=== PATIENT | female | born 1980 | race Caucasian/White ===

== ENCOUNTER → 2018-03-01 08:57 | Outpatient (CLI) | payer BC, SELFPAY ==
--- NOTE | 2018-03-01 | FL_ITS ---
FL upper GI w air HISTORY: ITS.REASON: UPPER ABD PAIN, fullness SENSATION ORDERING PHYSICIAN: Danielle Vazquez PATIENT AGE: 37 years Comparison: None FINDINGS: The esophagus, stomach, and duodenum have an unremarkable appearance. There is no evidence of hiatal hernia. No ulcer or mass evident. No mucosal abnormalities apparent. There is normal peristalsis. The duodenal C-loop is nondisplaced. FLUOROSCOPY TIME : 1 minute 36 seconds. IMPRESSION: Negative upper GI
== END ==
PROVIDERS: Family Provider Nurse Practitioner Family; PCP Nurse Practitioner Family; Visit Provider Nurse Practitioner Family
DX: R10.10 Upper abdominal pain, unspecified (principal); F45.8 Other somatoform disorders
CPT/HCPCS: 74247

== ENCOUNTER → 2019-08-06 17:15 | Outpatient (CLI) | payer BC, SELFPAY ==
[2019-08-07 16:35] LABS: Microscopic, Urine URINE MICROSCOPIC (MICROSCOPIC)
[2019-08-07 17:13] LABS: Appearance,Urine CLEAR (Clear); Bilirubin,Urine Negative (Negative); Blood, Urine Negative (Negative); Color,Urine YELLOW (Yellow); Glucose,Urine (UA) Negative (Negative); Ketones,Urine Negative (Negative); Leukocyte Esterase,Urine 1+ (Negative); Nitrate,Urine Negative (Negative); Protein,Urine Negative (Negative); Urobilinogen,Urine 0.2 EU/dl (0.2)
[2019-08-07 18:04] LABS: Bacteria,Urine Trace /lpf; Squamous Epithelial Cell,Urine Occasional #/hpf (0-5)
== END ==
PROVIDERS: Visit Provider Nurse Practitioner Family
DX: R30.0 Dysuria (principal)
CPT/HCPCS: 81001; 87086

== ENCOUNTER → 2020-03-11 15:16 | Outpatient (CLI) | payer BC, SELFPAY ==
[2020-03-11 16:00] LABS: Basophils % 0.5 % (0.1-2.0); Eosinophils # 0.1 K/mm3 (0.0-0.4); Eosinophils % 1.4 % (0.1-12.0); Hematocrit 43.1 % (37.0-47.0); Lymphocytes % 30.4 % (10-50); Mean Corpuscular HGB Conc 34.7 g/dL (31.8-35.4); Mean Corpuscular Hemoglobin 29.8 pg (27.0-31.2); Mean Platelet Volume 7.9 fl (7.4-10.4); Monocytes # 0.3 K/mm3 (0.1-1.0); Monocytes % 4.9 % (1.7-9.3); Neutrophils # 4.2 K/mm3 (1.8-7.8); Neutrophils % 62.7 % (37.0-80.0); Platelet Count 317 K/mm3 (142-424); Red Blood Count 5.02 M/mm3 (4.20-5.40); Red Cell Distribution Width 14.1 % (11.5-17.5); White Blood Count 6.6 K/mm3 (4.8-10.8)
[2020-03-11 17:11] LABS: Chloride 102 mmol/L (98-107); Potassium 4.5 mmoL/L (3.5-5.1); Sodium 139 mmol/L (136-145)
[2020-03-11 17:14] LABS: Alanine Aminotransferase 23 U/L (12-78); Albumin Level 4.9 g/dl (3.5-5.0); Albumin/Globulin Ratio 1.9 (1.1-1.8); Alkaline Phosphatase 95 U/L (38-126); Anion Gap 12.5 mEq/L (5-15); Aspartate Amino Transferase 27 U/L (14-36); Bilirubin,Total 0.6 mg/dl (0.2-1.3); Blood Urea Nitrogen 19 mg/dl (7-17); Carbon Dioxide 29 mmol/L (22.0-30.0); Estimated Glomerular Filt Rate 70 ml/min (>60); GFR (African American) 85 ML/MIN (>60); Globulin 2.6 g/dL (1.3-3.2); Total Protein,Serum 7.5 g/dl (6.3-8.2)
[2020-03-11 17:15] LABS: Calcium 9.9 mg/dl (8.4-10.2); Glucose 90 mg/dl (74-100)
[2020-03-11 17:44] LABS: Thyroid Stimulating Hormone 1.15 uIU/mL (0.465-4.68)
== END ==
PROVIDERS: PCP Nurse Practitioner Family; Visit Provider Nurse Practitioner Family
DX: Z00.00 Encounter for general adult medical examination without abnormal findings (principal)
CPT/HCPCS: 36415; 80053; 84443; 85025

== ENCOUNTER → 2020-11-27 13:38 | Outpatient (CLI) | payer BC, SELFPAY ==
[2020-11-27 14:40] LABS: Basophils % 0.2 % (0.1-2.0); Eosinophils % 0.2 % (0.1-12.0); Hematocrit 38.2 % (37.0-47.0); Hemoglobin 12.4 g/dL (12.2-16.2); Lymphocytes # 1.5 K/mm3 (0.7-4.5); Lymphocytes % 7.3 % (10-50); Mean Corpuscular HGB Conc 32.4 g/dL (31.8-35.4); Mean Corpuscular Hemoglobin 28.8 pg (27.0-31.2); Mean Corpuscular Volume 88.8 fl (81-99); Mean Platelet Volume 7.6 fl (7.4-10.4); Monocytes # 0.4 K/mm3 (0.1-1.0); Monocytes % 1.9 % (1.7-9.3); Neutrophils % 90.4 % (37.0-80.0); Platelet Count 280 K/mm3 (142-424); Red Blood Count 4.31 M/mm3 (4.20-5.40); Red Cell Distribution Width 13.8 % (11.5-17.5)
[2020-11-27 14:44] LABS: MANUAL DIFFERENTIAL MANUAL DIFFERENTIAL (MANUAL DIFF)
[2020-11-27 16:07] LABS: Alanine Aminotransferase 156 U/L (12-78); Albumin Level 3.9 g/dl (3.5-5.0); Albumin/Globulin Ratio 1.6 (1.1-1.8); Alkaline Phosphatase 185 U/L (38-126); Amylase 53 U/L (30-110); Aspartate Amino Transferase 65 U/L (14-36); Bilirubin,Total 0.6 mg/dl (0.2-1.3); Blood Urea Nitrogen 13 mg/dl (7-17); Calcium 9.2 mg/dl (8.4-10.2); Carbon Dioxide 29 mmol/L (22.0-30.0); Chloride 103 mmol/L (98-107); Estimated Glomerular Filt Rate 70 ml/min (>60); GFR (African American) 85 ML/MIN (>60); Globulin 2.5 g/dL (1.3-3.2); Glucose 82 mg/dl (74-100); Lipase 85 U/L (23-300); Sodium 138 mmol/L (136-145); Total Protein,Serum 6.4 g/dl (6.3-8.2)
[2020-11-27 19:15] LABS: Lymphocytes % 6 % (10-50); Monocytes % 1 % (2-9); Neutrophils % 93 % (42-76); Platelet Estimate Normal; RBC Morphology Normal; Total Cells Counted 100
--- NOTE | 2020-11-27 19:24 | XR_ITS ---
PROCEDURE: XR CHEST 2V CLINICAL HISTORY: COUGH Shortness of air COMPARISON: CR CXR CHEST(2 VIEWS-NOT PORTABLE) from 10/17/2016 FINDINGS: The cardiomediastinal silhouette and pulmonary vascularity are within normal limits. The lungs are clear without infiltrates, suspicious nodules, or pleural effusions. No acute bony abnormalities. IMPRESSION: No acute findings. Dictated by: Joey Keyes MD 11/28/2020 05:08 Joey Keyes MD in [facility] 11/28/2020 05:08
[2020-11-29 18:28] LABS: Hep A Ab, IgM Negative (Negative); Hepatitis B Core Antibody IgM Negative (Negative); Hepatitis B Surface Antigen Negative (Negative)
[2020-11-29 18:39] LABS: Hepatitis C Antibody <0.1 s/co ratio (0.0-0.9)
[2020-11-29 18:40] LABS: Cytomegalovirus (CMV) Ab, IgM <30.0 AU/mL (0.0-29.9); EBV Ab VCA, IgM <36.0 U/mL (0.0-35.9)
== END ==
PROVIDERS: PCP Nurse Practitioner Family; Visit Provider Internal Medicine Adolescent Medicine
DX: R11.2 Nausea with vomiting, unspecified (principal); R52 Pain, unspecified; R74.8 Abnormal levels of other serum enzymes; D72.9 Disorder of white blood cells, unspecified; M79.671 Pain in right foot
CPT/HCPCS: 36415; 71046; 80053; 80074; 82150; 83690; 85007; 85025; 86644; 86645; 86664; 86665

== ENCOUNTER → 2020-11-28 09:28 | Outpatient (CLI) | payer BC, SELFPAY ==
--- NOTE | 2020-11-28 09:38 | US_ITS ---
PROCEDURE: US ABDOMEN LIMITED CLINICAL INDICATION: NEUTROPHILIC LEUKOCYTOSIS, ELEVATED LIVER ENZYMES COMPARISON: No exams were available for comparison FINDINGS: PANCREAS: Unremarkable. No obvious mass or abnormal fluid collection. No ductal dilatation LIVER: No focal liver lesions demonstrated. Homogeneous echogenicity. No intrahepatic biliary ductal dilatation evident. There is appropriate direction of blood flow within a non dilated portal vein RIGHT KIDNEY: Unremarkable. Normal size and echogenicity. No hydronephrosis GALLBLADDER: No gallstones, gallbladder wall thickening, pericholecystic fluid, or biliary dilatation. There is a small amount of sludge in the gallbladder. IMPRESSION: Small amount of sludge in the gallbladder otherwise negative right upper quadrant ultrasound. No shadowing stones apparent. Dictated by: Joey Keyes MD 11/28/2020 11:20 Joey Keyes MD in [facility] 11/28/2020 11:20
--- NOTE | 2020-11-28 09:39 | XR_ITS ---
PROCEDURE: XR FOOT RT MIN 3V CLINICAL INDICATION: RT FOOT PAIN COMPARISON: CR FTL3 FOOT-LT-3 VIEWS from 08/03/2013 FINDINGS: No fracture or dislocation. No lytic or blastic change. There is normal mineralization. Small area of lucency is present involving the distal aspect of the 1st metatarsal medially as seen on the oblique view and may represent a small sub cortical cyst. No bony destructive process evident. Other findings:None. IMPRESSION: Small subcortical cyst of the distal aspect of the 1st metatarsal otherwise negative Dictated by: Joey Keyes MD 11/28/2020 14:41 Joey Keyes MD in [facility] 11/28/2020 14:41
== END ==
PROVIDERS: PCP Nurse Practitioner Family; Visit Provider Nurse Practitioner Family
DX: R10.11 Right upper quadrant pain (principal); R74.8 Abnormal levels of other serum enzymes; D72.9 Disorder of white blood cells, unspecified; M79.671 Pain in right foot
CPT/HCPCS: 73630; 76705

== ENCOUNTER 2020-12-03 21:01 | Emergency (ER) | payer BC, SELFPAY ==
[2020-12-03 21:04] VITALS: BP 136/74; PULSE 94; RESP 16; TEMP 37; O2SAT 96; BMI 25.7
--- NOTE | 2020-12-03 21:17 | CT_ITS ---
PROCEDURE: CT ABDOMEN PELVIS W CON CLINICAL INDICATION: abd pain Abdominal pain, right upper quadrant and left lower quadrant pain COMPARISON: No exams were available for comparison TECHNIQUE: IV Contrast: 75ML Isovue 370 Oral Contrast None Axial images obtained with sagittal and coronal reformats. All CT scans at the facility use one or more dose reduction, viz: automated exposure control, ma/kV adjustment per patient size (including targeted exams where dose is matched to indication, i.e. head), or iterative reconstruction technique. FINDINGS: The lung bases are clear. The liver, gallbladder, spleen, adrenal glands, pancreas, and kidneys have an unremarkable appearance. There are few small retroperitoneal and peritoneal lymph nodes. These are nonspecific. Peritoneal lymph nodes are somewhat prominent measuring up to 2.7 by 1.3 cm in the mid mesenteric region. No intestinal obstruction or free air. There is a mild amount retained colonic feces. No evidence of appendicitis. There is an IUD in place. There are left ovarian follicular cyst with 1 rim enhancing cyst suggesting a corpus luteum. No pelvic mass or abnormal fluid collection. No evidence of diverticulitis. No acute bony findings. IMPRESSION: No acute finding Dictated by: Joey Keyes MD 12/04/2020 06:26 Joey Keyes MD in [facility] 12/04/2020 06:26
[2020-12-03 21:24] LABS: Microscopic, Urine URINE MICROSCOPIC (MICROSCOPIC)
[2020-12-03 21:27] LABS: Appearance,Urine CLEAR (Clear); Basophils % 0.2 % (0.1-2.0); Bilirubin,Urine Negative (Negative); Blood, Urine Negative (Negative); Color,Urine YELLOW (Yellow); Eosinophils # 0.1 K/mm3 (0.0-0.4); Eosinophils % 0.8 % (0.1-12.0); Glucose,Urine (UA) Negative (Negative); Hematocrit 40.7 % (37.0-47.0); Hemoglobin 13.5 g/dL (12.2-16.2); Ketones,Urine Negative (Negative); Leukocyte Esterase,Urine Negative (Negative); Lymphocytes # 0.7 K/mm3 (0.7-4.5); Lymphocytes % 6.5 % (10-50); Mean Corpuscular HGB Conc 33.2 g/dL (31.8-35.4); Mean Corpuscular Hemoglobin 29.3 pg (27.0-31.2); Mean Corpuscular Volume 88.1 fl (81-99); Mean Platelet Volume 7.7 fl (7.4-10.4); Monocytes # 0.3 K/mm3 (0.1-1.0); Monocytes % 2.3 % (1.7-9.3); Neutrophils % 90.2 % (37.0-80.0); Nitrate,Urine Negative (Negative); PH,Urine 6.5 (5.0-8.5); Platelet Count 253 K/mm3 (142-424); Protein,Urine Negative (Negative); Red Blood Count 4.62 M/mm3 (4.20-5.40); Red Cell Distribution Width 13.2 % (11.5-17.5); Specific Gravity, Urine 1.015 (1.005-1.030); Urobilinogen,Urine 0.2 EU/dl (0.2); White Blood Count 11.1 K/mm3 (4.8-10.8)
[2020-12-03 21:30] VITALS: BP 131/73; PULSE 84; RESP 17; O2SAT 97
[2020-12-03 21:30] LABS: Urine Pregnancy, HCG Qual. Negative (Negative)
[2020-12-03 21:32] LABS: MANUAL DIFFERENTIAL MANUAL DIFFERENTIAL (MANUAL DIFF)
--- NOTE | 2020-12-03 21:33 | PC.NURSE ---
notified rad that pt complete po contrast
[2020-12-03 21:37] LABS: Chloride 105 mmol/L (98-107); Potassium 3.9 mmoL/L (3.5-5.1); Sodium 138 mmol/L (136-145)
[2020-12-03 21:39] LABS: Blood Urea Nitrogen 15 mg/dl (7-17); Creatinine Clearance Estimated 137 mL/min (50-200); Estimated Glomerular Filt Rate 112 ml/min (>60); GFR (African American) 135 ML/MIN (>60)
[2020-12-03 21:40] LABS: Alanine Aminotransferase 48 U/L (12-78); Albumin Level 4.4 g/dl (3.5-5.0); Albumin/Globulin Ratio 1.5 (1.1-1.8); Alkaline Phosphatase 154 U/L (38-126); Anion Gap 11.9 mEq/L (5-15); Aspartate Amino Transferase 29 U/L (14-36); Bilirubin,Total 0.8 mg/dl (0.2-1.3); Calcium 9.3 mg/dl (8.4-10.2); Carbon Dioxide 25 mmol/L (22.0-30.0); Globulin 2.9 g/dL (1.3-3.2); Glucose 100 mg/dl (74-100); Total Protein,Serum 7.3 g/dl (6.3-8.2)
[2020-12-03 21:41] LABS: Bacteria,Urine Trace /lpf; Lactic Acid < 0.5 mmol/L (0.7-2.1)
[2020-12-03 21:46] LABS: C-Reactive Protein 19.6 mg/L (0-4)
[2020-12-03 22:00] VITALS: BP 134/75; PULSE 81; RESP 15; O2SAT 98
[2020-12-03 22:03] LABS: Erythrocyte Sedimentation Rate 16 mm/hr (0-20); Procalcitonin 0.125 ng/mL (0.0-2.0)
--- NOTE | 2020-12-03 22:28 | HMH.EDNVD ---
ED Disposition Clinical Impression: Abdominal pain Qualifiers: Abdominal location: generalized Qualified Code(s): R10.84 - Generalized abdominal pain Disposition: Home, Self-Care Condition on Discharge: Good Instructions: DI for Acute Abdominal Pain Additional Instructions: fluids and see pcp for follow up Referrals: Danielle Vazquez APRN [Primary Care Provider] - - Critical Care Critical Care Time: No Attestation: On 12/03/20, the high probability of a clinically significant, sudden or life threatening deterioration of the following system(s) required my full and direct attention, intervention and personal management. The time I documented below is in addition to time spent performing reported procedures but includes the following listed in this critical care notation. Medical Decision Making - Medical Records Medical records reviewed: Yes: I reviewed the patient's medical records. - Misael Inquiry Pt receiving controlled substance: No Vital Signs: 12/03/20 21:04 12/03/20 21:30 12/03/20 22:00 Temperature 98.6 F Temperature Source Oral Pulse Rate [Right] 94 H 84 81 Respiratory Rate 16 17 15 Blood Pressure [Right Arm] 136/74 131/73 134/75 Blood Pressure Mean [Right Arm] 94 92 94 Blood Pressure Source [Right Arm] Automatic Cuff Automatic Cuff Blood Pressure Position [Right Arm] Supine Supine 02 Sat by Pulse Oximetry 96 97 98 Oxygen Delivery Method Room Air Room Air Room Air 12/03/20 23:00 12/04/20 00:00 Temperature Temperature Source Pulse Rate [Right] 70 72 Respiratory Rate 17 17 Blood Pressure [Right Arm] 95/53 L 99/60 L Blood Pressure Mean [Right Arm] 67 73 Blood Pressure Source [Right Arm] Automatic Cuff Automatic Cuff Blood Pressure Position [Right Arm] Supine Supine 02 Sat by Pulse Oximetry 98 100 Oxygen Delivery Method Room Air Room Air - Lab Data Lab results reviewed: Yes: I reviewed the patient's lab results. Lab Results 12/03/20 21:15: Urine Color Yellow, Urine Appearance Clear, Urine pH 6.5, Ur Specific [place] 1.015, Urine Protein Negative, Urine Glucose (UA) Negative, Urine Ketones Negative, Urine Blood Negative, Urine Nitrate Negative, Urine Bilirubin Negative, Urine Urobilinogen 0.2, Ur Leukocyte Esterase Negative, Urine WBC 3-5, Ur Squamous Epith Cells 3-5, Urine Bacteria Trace 12/03/20 21:15: WBC 11.1 H, RBC 4.62, Hgb 13.5, Hct 40.7, MCV 88.1, MCH 29.3, MCHC 33.2, RDW 13.2, Plt Count 253, MPV 7.7, Neut % (Auto) 90.2 H, Lymph % (Auto) 6.5 L, [place] % (Auto) 2.3, Eos % (Auto) 0.8, Baso % (Auto) 0.2, Neut # (Auto) 10.0 H, Lymph # (Auto) 0.7, [place] # (Auto) 0.3, Eos # (Auto) 0.1, Baso # (Auto) 0.0, Total Counted 100, Neutrophils % (Manual) 92 H, Lymphocytes % (Manual) 7 L, Monocytes % (Manual) 1 L, Platelet Estimate Normal, RBC Morphology Normal, ESR 16 12/03/20 21:15: Urine HCG, Qual Negative 12/03/20 21:15: Sodium 138, Potassium 3.9, Chloride 105, Carbon Dioxide 25, Anion Gap 11.9, BUN 15, Creatinine 0.60, Estimated Creat Clear 137, Estimated GFR 112, Est GFR ( Amer) 135, Glucose 100, Calcium 9.3, Total Bilirubin 0.8, AST 29, ALT 48, Alkaline Phosphatase 154 H, C-Reactive Protein 19.6 H, Total Protein 7.3, Albumin 4.4, Globulin 2.9, Albumin/Globulin Ratio 1.5, Procalcitonin 0.125 12/03/20 21:15: Lactate < 0.5 L 12/03/20 21:15: Amylase 72 12/03/20 21:15: Lipase 84 Result diagrams: 12/03/20 21:15 12/03/20 21:15 Orders (Tests/Meds): ED MEDICATIONS Generic Name Dose Route Start Last Admin Trade Name Freq PRN Reason Stop Dose Admin Sodium Chloride 1,000 mls @ 999 mls/hr 12/03/20 21:30 12/03/20 21:26 Sod Chlor 0.9% 1000ml Bag IV 12/03/20 22:30 999 mls/hr .Q1H1M ANABELLE Administration Sodium Chloride 1,000 mls @ 999 mls/hr 12/03/20 22:45 12/03/20 22:37 Sod Chlor 0.9% 1000ml Bag IV 12/03/20 23:45 999 mls/hr .Q1H1M ANABELLE Administration Sodium Chloride 8 ml 12/03/20 21:22 Sodium Chloride 0.9% 10ml Vial IV 01/02/21 21:21 NEEDED PRN dilu
[2020-12-03 22:41] LABS: Amylase 72 U/L (30-110); Lipase 84 U/L (23-300)
[2020-12-03 22:50] LABS: Lymphocytes % 7 % (10-50); Monocytes % 1 % (2-9); Neutrophils % 92 % (42-76); Platelet Estimate Normal; RBC Morphology Normal; Total Cells Counted 100
[2020-12-03 23:00] VITALS: BP 95/53; PULSE 70; RESP 17; O2SAT 98
[2020-12-04] VITALS: BP 99/60; PULSE 72; RESP 17; O2SAT 100
[2020-12-04 00:30] VITALS: BP 101/40; PULSE 72; RESP 17; O2SAT 100
[2020-12-04 00:35] VITALS: BP 101/40; PULSE 72; RESP 17; TEMP 37; O2SAT 100
== END 2020-12-04 00:37 | disposition home or self-care (01) ==
PROVIDERS: Emergency Provider Emergency Medicine; PCP Nurse Practitioner Family
DX: R10.84 Generalized abdominal pain (principal); Z20.822 Contact with and (suspected) exposure to COVID-19
CPT/HCPCS: 74177; 80053; 81001; 81025; 82150; 83605; 83690; 84145; 85007; 85025; 85651; 86140; 87040; 96366; 96374; 96375; 99284; Q9967; U0003